=== PATIENT | female | born 1965 | race Caucasian/White ===

== ENCOUNTER 2018-07-28 08:05 | Emergency (ER) | payer SELFPAY ==
[2018-07-28] MEDS ORDERED: ISOVUE-370 76%-LOCM 1 ML ONE (10:28)
[2018-07-28 10:30] LABS: #Basophils 0.1 thou/uL (0.0-0.2); #Eosinphils 0.2 thou/uL (0.0-0.7); #Monocytes 0.4 thou/uL (0.11-0.59); %Basophils 0.9 % (0.0-1.0); %Eosinophils 2.5 % (0.0-10.0); %Lymphocytes 25.8 % (21.0-51.0); %Monocytes 5.6 % (0.0-10.0); %Neutrophils 65.2 % (42.0-75.0); Mean Corpuscular HGB CONC 33.1 g/dL (32.0-36.0); Mean Corpuscular Hemoglobin 29.8 pg (27.0-31.0); Mean Platelet Volume 9.1 fL (7.4-10.4); Platelet Count 290 thou/uL (130-400); RBC Distribution Width 12.4 % (11.5-14.5); White Blood Cell (WBC) Count 7.6 thou/uL (4.8-10.8)
[2018-07-28 11:14] LABS: ALT (SGPT) 17 U/L (8-55); AST (SGOT) 17 U/L (5-34); Albumin 4.7 g/dL (3.5-5.0); Alkaline Phosphatase 70 U/L (40-150); Anion Gap 13 mmol/L (10-20); BUN (Urea Nitrogen) 14 mg/dL (9.8-20.1); Bilirubin, Total 0.6 mg/dL (0.2-1.2); Calc. Creatinine Clearance 0 mL/min (70-130); Calcium 9.9 mg/dL (7.8-10.44); Carbon Dioxide 27 mmol/L (22-29); Chloride 105 mmol/L (98-107); Estimated GFR-MDRD 58; Globulin 3.1 g/dL (2.4-3.5); Glucose 91 mg/dL (70-105); Potassium 4.6 mmol/L (3.5-5.1); Protein, Total 7.8 g/dL (6.0-8.3); Sodium 140 mmol/L (136-145)
--- NOTE | 2018-07-28 11:15 | CT ---
CT HEAD WITHOUT CONTRAST: Date: 07/28/18 INDICATION: Right side weakness. FINDINGS: Ventricles have normal size and position. There is no evidence of intracranial mass, edema, hemorrhag e, or infarct. Sinuses and mastoids appear clear. IMPRESSION: No acute findings. POS: [facility]
--- NOTE | 2018-07-28 11:43 | CT ---
CT ANGIOGRAM OF HEAD CT ANGIOGRAM OF NECK: Date: 07/28/18 HISTORY: Right-sided weakness. COMPARISON: None. None. TECHNIQUE: CT angiogram of the head and neck are performed in the axial plane. Three-dimensional reformatted nathaniel ges are submitted for interpretation. FINDINGS: No pathologic enhancement of the brain parenchyma. Calvarium is intact. Bilateral ocular lenses appropriately located. Both globes are intact. Retrobulbar fat is preserved. Symmetric attenuation of the optic nerve and ocular rectus muscles. Aerodigestive tract is patent. No obvious masses in the oral cavity. Limited evaluation of the anteri or oral cavity due to dental amalgam artifact. Epiglottis is of normal caliber. Preepiglottic fat is preserved. Symmetric attenuation of the parotid and submandibular glands. Symmetric attenuation of th e sternocleidomastoid muscles. No evidence of lymphadenopathy by size criteria. Unremarkable thyroid gland, upper mediastinum, and visualized lung parenchyma. Cervical spine vertebral body height is maintained. There is no fracture. No high grade central canal stenosis. Varying degrees of foraminal narrowing on the basis of degenerative change. Evaluation is limited by technique. CT ANGIOGRAM: The visualized aorta is unremarkable. Right Carotid: The right carotid artery origin has appropriate enhancement and luminal diameter. The common carotid artery, carotid bifurcation, and internal carotid artery have appropriate enhancement and luminal diameter. Left Carotid: The left carotid artery origin, common carotid artery, carotid bifurcation, and direct marketing intern al carotid artery have appropriate enhancement and luminal diameter. No evidence of significant stenosis based upon NASCET criteria in either cervical carotid artery. Bilateral subclavian arteries are patent. Bilateral cervical vertebral arteries are patent. Vertebral arteries are essentially codominant. CT ANGIOGRAM HEAD: Distal cervical and intracranial carotid arteries have appropriate enhancement and luminal diameter. 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 Left A1 segment bell s appropriate enhancement. Proximal A2 segments have appropriate enhancement. The M1 segments have sy mmetric enhancement and luminal diameter. Proximal MCA branches are also symmetric. Posterior Circulation: Both PICA artery origins are unremarkable. Both vertebral arteries supply a n ormal appearing basilar artery. The left and right P1 segments have appropriate enhancement and lumin al diameter. IMPRESSION: 1. Unremarkable CT angiogram of head and neck. 2. No evidence of significant stenosis based upon NASCET criteria. POS: [facility]
== END 2018-07-28 12:11 | disposition home or self-care (01) ==
LOC: ERS 08:05
DX: R20.2 Paresthesia of skin (principal); R13.10 Dysphagia, unspecified
CPT/HCPCS: 70450; 70496; 70498; 80053; 84484; 85025; 93005; Q9966